=== PATIENT | male | born 1950 | race Caucasian/White ===

== ENCOUNTER 2020-10-21 21:37 | Emergency (ER) | payer BC, MEDICARE ==
[~2020-10-21] VITALS: Ht 167.6 cm; Wt 90.0 kg
[2020-10-21 22:41] LABS: HEMATOCRIT 34.8 % (39.0-53.0); HEMOGLOBIN 11.4 g/dL (13.0-17.5); RED BLOOD COUNT 3.52 x10^6/uL (4.30-5.70); RED CELL DISTRIBUTION WIDTH 12.8 % (11.5-14.5); WHITE BLOOD COUNT 6.1 x10^3/uL (4.0-11.0)
[2020-10-21 22:52] LABS: CREATININE 1.3 mg/dL (0.7-1.3); GFR 54.3
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
[2020-10-21 22:58] LABS: ALBUMIN 3.2 g/dL (3.4-5.0); ALBUMIN/GLOBULIN RATIO 0.9 (1.0-1.7); TOTAL BILIRUBIN 0.3 mg/dL (0.2-1.0); TOTAL PROTEIN 6.8 g/dL (6.4-8.2)
--- NOTE | 2020-10-21 23:25 | RAD ---
Left Lower Extremity Venous Doppler Ultrasound History: Reason: LLE SWELLING AND CALF PAIN, RO DVT / Spl. Instructions: / History: Comparison: None Procedure: Color flow, duplex, spectral analysis and 2D images are obtained with and without compression in the area of the common femoral vein, superficial femoral vein - femoral vein junction, main femoral vein (superficial femoral vein) and popliteal vein. Veins of the proximal calf are also imaged. Findings: There is normal duplex flow, color flow and compressibility of all visualized vein segments. No evidence of deep venous thrombus is present. There is a fluid 5.0 x 1.4 x 4.6 cm complex collection seen in the anterior morrison on the left. Impression: 1. No evidence of DVT. 2. Complex fluid collection seen in the anterior morrison could be a hematoma or seroma or bursitis. Electronically signed by: Donato Garcia III, MD (10/21/2020 11:22 PM) [facility]
[2020-10-21] MEDS ORDERED: ACETAMINOPHEN 325 MG TABLET PO ONE (23:30)
[2020-10-21 23:53] VITALS: BP 156/88
== END 2020-10-21 23:55 | disposition home or self-care (01) ==
LOC: ER 21:37
DX: R60.0 Localized edema (principal); F32.9 Major depressive disorder, single episode, unspecified
CPT/HCPCS: 36415; 80053; 85027; 85610; 85730; 93971; 99284

== ENCOUNTER → 2021-01-26 | Outpatient (CLI) | payer MEDICARE, BC ==
[2021-01-26 08:39] LABS: BASO % 1 % (0-3); EOS # 0.2 x10^3/uL (0.0-0.7); EOS % 4 % (0-3); HEMATOCRIT 43.2 % (39.0-53.0); LYMPH # 1.5 x10^3/uL (1.0-4.8); LYMPH % 39 % (24-48); MEAN CORPUSCULAR HEMOGLOBIN 32 pg (25-35); MEAN CORPUSCULAR HGB CONC 33 g/dL (31-37); MEAN CORPUSCULAR VOLUME 97 fL (79-100); MONO # 0.4 x10^3/uL (0.0-1.1); MONO % 9 % (0-9); NEUT # 1.8 x10^3uL (1.8-7.7); NEUT % 46 % (31-73); PLATELET COUNT 191 x10^3/uL (140-400); RED BLOOD COUNT 4.44 x10^6/uL (4.30-5.70); RED CELL DISTRIBUTION WIDTH 12.2 % (11.5-14.5); WHITE BLOOD COUNT 3.9 x10^3/uL (4.0-11.0)
[2021-01-26 08:48] LABS: ALBUMIN 3.4 g/dL (3.4-5.0); ALBUMIN/GLOBULIN RATIO 1.1 (1.0-1.7); CALCIUM 8.8 mg/dL (8.5-10.1); GFR 73.5; POTASSIUM 3.7 mmol/L (3.5-5.1); TOTAL BILIRUBIN 0.3 mg/dL (0.2-1.0); TOTAL PROTEIN 6.6 g/dL (6.4-8.2)
[2021-01-26 14:28] LABS: FREE T4 0.73 ng/dL (0.76-1.46); THYROID STIM HORMONE (TSH) 3.251 uIU/mL (0.358-3.740)
[2021-01-27 00:07] LABS: HEMOGLOBIN A1C 5.5 % (4.8-5.6)
== END ==
LOC: LAB 07:09
PROVIDERS: ATTEND Physician Assistant
DX: Z79.899 Other long term (current) drug therapy (principal)
CPT/HCPCS: 36415; 80053; 80061; 83036; 84439; 84443; 84480; 85025